=== PATIENT | female | born 1965 | race Caucasian/White ===

== ENCOUNTER 2017-07-18 17:20 | Emergency (ER) | payer BC, OTHER ==
--- NOTE | 2017-07-18 17:45 | EDM.PDOC ---
ED HPI GENERAL MEDICAL PROBLEM - General Chief Complaint: Lower Extremity Injury/Pain Stated Complaint: PT HURT LT ANKLE Time Seen by Provider: 07/18/17 17:38 Source of Information: Reports: Patient History Limitations: Reports: No Limitations - History of Present Illness INITIAL COMMENTS - FREE TEXT/NARRATIVE: HISTORY AND PHYSICAL: []51-year-old female presents with injury to left ankle History of Present Illness: []Patient missed the last step going at home and fell minor lacerations to both feet Review of Systems: As per history of present illness and below otherwise all systems reviewed and negative. Past medical history: As per history of present illness and as reviewed below otherwise noncontributory. Surgical history: As per history of present illness and as reviewed below otherwise noncontributory. Social history: No reported history of drug or alcohol abuse. Family history: As per history of present illness and as reviewed below otherwise noncontributory. Physical exam: Denies any head injury answering questions appropriately in full sentences without any shortness of breath HEENT: Atraumatic, normocehpalic, pupils reactive, negative for conjunctival pallor or scleral icterus, mucous membranes moist, throat clear, neck supple, nontender, trachea midline. Lungs: Clear to auscultation, breath sounds equal bilaterally, chest non tender. Heart: S1S2, regular, negative for clicks, rubs, or JVD. Abdomen: Soft, nondistended, nontender. Negative for masses or hepatossplenmegaly. Negative for costovertebral tenderness. Pelvis: Stable nontender. Genitourinary: Deferred. Rectal: Deferred Extremities:traumatic, negative for cords or calf pain. JANUSZ noted to an ecchymosis to the lateral malleolus. Neurovascular unremarkable. Neuro: Awake, alert, oriented. Cranial nerves II through XII unremarkable. Cerebellum unremarkable. Motor and sensory unremarkable throughout. Exam nonfocal. Discussed with the patient and her that there is a fracture at the medial tip of the lateral malleolus seen only on the AP view alert dome is intact ankle mortise is symmetric in appearance. Diagnostics: []X-ray left ankle Therapeutics: []Cam Walker boot Impression: []Nondisplaced fracture of the tip of the lateral malleolus Plan: []Discharged home Keep the Cam Walker walker boot on while up Follow-up with Dr. Navarro in the next 2 weeks for re-x-ray Definitive disposition and diagnosis as appropriate pending reevaluation and review of above. Onset: Today, Sudden Duration: Hour(s): Location: Reports: Lower Extremity, Left Quality: Reports: Throbbing Severity: Moderate Improves with: Reports: None Worsens with: Reports: None Associated Symptoms: Reports: No Other Symptoms Left Ankle Pain Score (Numeric/FACES): 5 - Related Data Allergies Allergy/AdvReac Type Severity Reaction Status Date / Time No Known Allergies Allergy Verified 07/18/17 17:34 Home Meds: Home Meds Ranitidine HCl [Zantac] 150 mg PO DAILY 07/18/17 [History] Review of Systems - Review of Systems Review Of Systems: ROS reveals no pertinent complaints other than HPI. ED EXAM, GENERAL - Physical Exam Exam: See Below (see dictation) Course - Vital Signs Last Recorded V/S: Last Vital Signs Temp 36.8 C 07/18/17 17:35 Pulse 62 07/18/17 17:35 Resp 16 07/18/17 17:35 BP 126/75 07/18/17 17:35 Pulse Ox 98 07/18/17 17:35 - Orders/Labs/Meds Orders: Active Orders 24 hr Category Date Time Status Ankle Min 3V Lt [CR] Stat Exams 07/18/17 17:38 Taken Departure - Departure Time of Disposition: 18:55 Disposition: Home, Self-Care 01 Condition: Good Clinical Impression: Fracture of lateral malleolus, closed Qualifiers: Encounter type: initial encounter Fracture alignment: nondisplaced Laterality: left Qualified Code(s): S82.65XA - Nondisplaced fracture of lateral malleolus of left fibula, initial encounter for closed fracture - Discharge Information Instructions: Cast or Splint Care, Adult, Fibular Ankle Fracture Treated With or Without Immobilization, Adult Referrals: PCP,None [Primary Care Provider] - Forms: ED Department Discharge Additional Instructions: The following information is given to patients seen in the emergency department who are being discharged to home. This information is to outline your options for follow-up care. We provide all patients seen in our emergency department with a follow-up referral. The need for follow-up, as well as the timing and circumstances, are variable depending upon the specifics of your emergency department visit. If you don't have a primary care physician on staff, we will provide you with a referral. We always advise you to contact your personal physician following an emergency department visit to inform them of the circumstance of the visit and for follow-up with them and/or the need for any referrals to a consulting specialist. The emergency department will also refer you to a specialist when appropriate. This referral assures that you have the opportunity for followup care with a specialist. All of these measure are taken in an effort to provide you with optimal care, which includes your followup. Under all circumstances we always encourage you to contact your private physician who remains a resource for coordinating your care. When calling for followup care, please make the office aware that this follow-up is from your recent emergency room visit. If for any reason you are refused follow-up, please contact the [facility] emergency department at and asked to speak to the emergency department charge nurse. Follow up with Dr. Navarro in the next 2 weeks Cam walker boot while up and walking Elevate and ice on 20 minutes off 20 minutes for the next 24 hours Turn as needed and discussed to the ER - My Orders Last 24 Hours: My Active Orders 07/18/17 17:38 Ankle Min 3V Lt [CR] Stat - Assessment/Plan Last 24 Hours: My Active Orders 07/18/17 17:38 Ankle Min 3V Lt [CR] Stat
--- NOTE | 2017-07-19 17:21 | CR ---
EXAM DATE: 07/18/17 PATIENT'S AGE: 51 Patient: TATI FRIEDMAN Facility: [place], [place] Site . Site : [id number] Study: XRay Extremity Left ankle [id number]/9/2018 6:08:42 PM Ordering Physician: Doctor Rasmussen Final Report: Indication: Fell down stairs. Technique: Left ankle three views. Comparison: None. Findings: There is an equivocal nondisplaced fracture involving the medial tip of the lateral malleolus seen on the AP view only. Lateral soft tissue swelling is present. Talar dome is intact. Ankle mortise is symmetric in appearance. The osseous structures are otherwise unremarkable. Impression: Equivocal nondisplaced fracture medial tip of the lateral malleolus. Radiographic follow-up could be considered as necessary. Lateral soft tissue swelling. Dictated by Leno Hairston MD @ 07/18/2017 6:30:33 PM Dictated by: Leno Hairston MD @ 07/18/2017 18:30:58 (Electronic Signature) Report Signed by Proxy. [facility] MED[facility] CENTERLaura
== END 2017-07-18 19:10 | disposition home or self-care (01) ==
LOC: MW.ED 17:20
DX: S82.65XA Nondisplaced fracture of lateral malleolus of left fibula, initial encounter for closed fracture (principal); W10.9XXA Fall (on) (from) unspecified stairs and steps, initial encounter
CPT/HCPCS: 73610-26-LT; 73610-LT; 99283

== ENCOUNTER 2022-06-02 10:42 | Day surgery (SDC) | payer BC, OTHER ==
[~2022-06-02 10:42] MED LIST: Lactated Ringers 1,000 ML IV SCH; Sodium Chloride 0.9% 10 ML Syringe FLUSH PRN; Sodium Chloride 0.9% 2.5 ML Syringe FLUSH PRN; Sodium Chloride 0.9% 20 ML SDV IV PRN
[2022-06-02] MEDS ORDERED: Propofol 200 MG/20 ML SDV ONE ×2 (12:18→12:33)
[2022-06-02] MEDS ORDERED: Lidocaine 2% 5 ML SDV ONE (12:18)
== END 2022-06-02 13:30 | disposition home or self-care (01) ==
LOC: MW.SDS 10:42
PROVIDERS: ATTEND Surgery
DX: K21.9 Gastro-esophageal reflux disease without esophagitis (principal); K44.9 Diaphragmatic hernia without obstruction or gangrene; K31.7 Polyp of stomach and duodenum; K57.30 Diverticulosis of large intestine without perforation or abscess without bleeding; K42.9 Umbilical hernia without obstruction or gangrene; Z87.891 Personal history of nicotine dependence
CPT/HCPCS: 43239; 45380; J2704; J7120; 00813; J3490